=== PATIENT | female | born 1995 | race Caucasian/White ===

== ENCOUNTER 2022-06-18 09:37 | Outpatient (CLI) | payer BC, SELFPAY ==
[2022-06-18] VITALS (9 sets, daily range): BP systolic 97–111; BP diastolic 52–59; PULSE 86–97; RESP 17; BMI 35.6
--- NOTE | 2022-06-18 10:30 | US_ITS ---
WS: [id number] ULTRASOUND OB FOCUSED HISTORY: vaginal bleeding COMPARISON: 04/20/2022 Single intrauterine gestation is present in vertex presentation. The cervix appears closed measuring 4.0 cm. heart rate at 144 BPM. The placenta is posterior, fundal to anterior. No abruption or previa is identified. Grade 1 placenta . Normal amount of amniotic fluid. The amniotic fluid is clear. US/US OB limited [id number] IMPRESSION: 1. Placenta appears appropriate. No evidence for abruption or previa. 2. Cervix is closed. 3. Normal cardiac activity. 4. Clear amniotic fluid.
== END 2022-06-18 12:10 | disposition home or self-care (01) ==
LOC: OPOB 09:41 → OBGYN 09:57
PROVIDERS: PCP Nurse Practitioner Family; Visit Provider Family Medicine
DX: O46.90 Antepartum hemorrhage, unspecified, unspecified trimester (principal); Z3A.00 Weeks of gestation of pregnancy not specified
CPT/HCPCS: 59025; 76815; 99211

== ENCOUNTER 2022-07-29 12:15 | Inpatient (IN) | payer BC, SELFPAY ==
[2022-07-29] VITALS (47 sets, daily range): BP systolic 86–195; BP diastolic 51–79; PULSE 68–113; RESP 15–17; TEMP 36.1–36.5; O2SAT 89–100; BMI 34.7
[2022-07-29 12:50] LABS: Basophils % 0.2 %; Eosinophils # 0.1 10^3/uL (0.0-0.8); Eosinophils % 0.5 %; Hematocrit 40.4 % (37.0-47.0); Hemoglobin 13.2 g/dL (11.5-15.3); Lymphocytes # 2.3 10^3/uL (0.8-4.8); Lymphocytes % 17.4 %; Mean Corpuscular HGB Conc 32.7 g/dL (30.0-36.0); Mean Corpuscular Hemoglobin 28.1 pg (28.0-34.0); Mean Platelet Volume 9.6 fL (7.4-10.4); Monocytes # 0.8 10^3/uL (0.2-0.9); Neutrophils # 9.86 10^3/uL (1.8-7.7); Neutrophils % 75.4 %; Nucleated Red Blood Cells % 0 %; Platelet Count 370 10^3/cmm (130-400); Red Cell Distribution Width 14.5 % (12.1-15.1); White Blood Count 13.1 10^3/uL (4.0-10.0)
[2022-07-29] MEDS: ampicillin 2,000 MG in sodium chloride 0.9% (plus) 50 ML 100 MG IV (13:00)
[2022-07-29] MEDS: dextrose 5%-lactated ringers 1,000 ML 125 ML IV (13:01)
[2022-07-29] MEDS: oxytocin 30 UNIT/500 ML BAG IV (13:02)
[2022-07-29] MEDS: lactated ringers 1,000 ML 999 ML IV (13:57)
[2022-07-29] MEDS: fentaNYL 50 mcg/mL INJ 2mL IVP (14:21)
--- NOTE | 2022-07-29 14:59 | ANES.PREANE2 ---
Pre-Anesthetic Assessment Height/Weight: Height 1.57 m Weight 86.183 kg Temp Pulse Resp BP Pulse Ox O2 Del Method 97.0 F L 96 17 107/70 96 07/29/22 12:23 07/29/22 14:54 07/29/22 14:21 07/29/22 14:54 07/29/22 14:54 07/29/22 12:22 Familial anesthetic complications: none Was Beta Kari taken within 24 hours: N/A Was Clonidine taken within 24 hours: N/A Social No alcohol and No tobacco Exam alert, oriented x 3, clear to auscultation bilaterally and regular rate & rhythm Airway Submandibular: within normal limits Cervical ROM: within normal limits Mallampati: Class II Dentition: full History/ROS No significant history except as noted Anesthetic Plan ASA status: 2 Anesthesia: Regional (specify below) (Labor epidural) Medications/Allergies Home Medications Medication Instructions Recorded Confirmed Last Taken Type vits 75-iron 28 mg-folic 1 pkg PO DAILY 06/18/22 07/29/22 07/28/22 20:00 History acid 800 mcg-omega-3 oral combo pack Allergies Allergy/AdvReac Type Severity Reaction Status Date / Time No Known Allergies Allergy Verified 06/18/22 10:33 Current Medications Generic Name Dose Route Start Last Admin Trade Name Ahmetq PRN Reason Stop Dose Admin Fentanyl 25 - 100 mcg 07/29/22 12:19 07/29/22 14:21 Fentanyl 50 Mcg/Ml Inj 2ml IVP 25 mcg Q1H PRN Administration SEVERE PAIN Dextrose/Lactated Ringer's 1,000 mls @ 125 mls/hr 07/29/22 12:30 07/29/22 13:57 Dextrose 5%-Lactated Ringers IV 0 mls/hr .Q8H GUIDO Infusion Oxytocin 30 unit in 500 mls @ 2 mls/hr 07/29/22 12:30 07/29/22 14:13 Pitocin IV 5 milliunit/min .Q24H GUIDO 5 mls/hr Titration Protocol 2 MILLIUNIT/MIN Lactated Ringer's 1,000 mls @ 999 mls/hr 07/29/22 13:51 07/29/22 13:57 Lactated Ringers IV 999 mls/hr .Q1H1M PRN Administration See label comments PFSH Anesthesia Female Reproductive History : 4 Data Anesthesia 07/29/22 12:30 Short CBC 07/29/22 Range/Units 12:30 WBC 13.1 H (4.0-10.0) 10^3/uL Hgb 13.2 (11.5-15.3) g/dL Hct 40.4 (37.0-47.0) % MCV 86.0 (81-99) fl Plt Count 370 (130-400) 10^3/cmm Neut % (Auto) 75.4 % Neut # (Auto) 9.86 H (1.8-7.7) 10^3/uL Cardiac Studies: No Data to Display Anesthesia Procedures Epidural Time Out Performed: Yes Consents Signed: Procedure Consent Consent: requested by attending/covering physician, from patient, risks and benefits reviewed and patient agrees to proceed Lumbar Level: L3-L4 Epidural position: sitting Epidural procedure: sterile prep of area, 1% lidocaine to numb the area, 18 g needle, neg for paresthesia, test dose given, placed PCEA, no systemic response, sterile dressing applied and 0.2% Ropiavacaine @ mls/hr (13) Additional Comments: TOMY at 5cm, cath at 10cm, 5mls of 2% lido bolused
--- NOTE | 2022-07-29 15:36 | PM.OPHPUD ---
Labor & Delivery H&P Update Date of Procedure: July 29, 2022 Date H&P Performed: 07/29/22 Admission Diagnosis: at 37w5d Active labor
--- NOTE | 2022-07-29 15:37 | PM.DELIVERY ---
Delivery Note: Date of delivery: July 29, 2022 Procedure: Normal spontaneous vaginal delivery Estimated blood loss (mL): 175 Delivery: This is a 26-year-old G3, P2 at 37 weeks 5 days gestation who presented to clinic complaining of cramping and pressure. On sterile vaginal examination her cervix was 7 cm dilated, 75% effaced and -1 station. She was sent over to labor and delivery for expectant management. Her GBS test was still pending as it was just done 3 days prior. She was given a dose of ampicillin due to GBS unknown and copious yellow discharge. She received an epidural for pain managment. Her labor was augmented using Pitocin. She had spontaneous rupture of membranes with clear fluid. She only had to push 1 time and had a normal spontaneous vaginal delivery of a viable male infant weight 3465 g, 7 pounds 10 ounces, Apgars 9 and 9 over an intact perineum. There was a loose nuchal cord X1 that was reduced upon delivery. the infant was suctioned at delivery and placed on the mother's chest. The cord was clamped and the father cut the cord. Cord blood was then obtained. The placenta was delivered grossly intact and normal to inspection. There were no lacerations. Mother and were doing well after delivery. Estimated blood loss 175 mL. Coding Level of Care Code Acute Professor Of Physical Education for Yeni Olivier
[2022-07-29] MEDS: lanolin oint 7 gm 1 APPLIC TOPICAL (17:02)
[2022-07-29] MEDS: benzocaine-menthol 78 gm Canister 1 SPRAY TOPICAL (17:03)
[2022-07-29] MEDS: docusate sodium 100 mg Capsule PO (17:03)
[2022-07-29] MEDS: acetaminophen 325 mg Tablet 650 MG PO (17:03)
[2022-07-29] MEDS: ibuprofen 800 mg tablet PO (20:27)
[2022-07-30] VITALS (9 sets, daily range): BP systolic 98–122; BP diastolic 56–77; PULSE 60–99; RESP 15–17; TEMP 36.6–36.7; O2SAT 96–99
[2022-07-30] MEDS: acetaminophen 325 mg Tablet 650 MG PO ×2 (00:07→04:59)
--- NOTE | 2022-07-30 00:17 | PC.NURSE ---
2145 Call placed to JAMAL Delacruz 2145 due to patient complaint of head unrelieved by tylenol and ibuprofen. Patient states headache gets better when laying completely flat. Patient given cafinated beverage and instructed to attempt laying flat for rest. JAMAL Delacruz states she is going to consult Dr. Javier and call back. 2155 JAMAL Delacruz states patient needs to try to rest laying flat and given tylenol as needed throughout the night, if pain increases Dr. Canas ordered Aminophylline 150mg to be given IV piggyback and Dr. Javier will be in to see the patient in the morning to assess.
[2022-07-30 04:54] LABS: Hematocrit 39.8 % (37.0-47.0); Hemoglobin 12.9 g/dL (11.5-15.3); Mean Corpuscular HGB Conc 32.4 g/dL (30.0-36.0); Mean Corpuscular Volume 86.5 fl (81-99); Mean Platelet Volume 9.3 fL (7.4-10.4); Platelet Count 304 10^3/cmm (130-400); Red Cell Distribution Width 14.6 % (12.1-15.1); White Blood Count 12.7 10^3/uL (4.0-10.0)
--- NOTE | 2022-07-30 08:46 | ANE.PACU2 ---
Inpatient post-anesthesia follow up: Airway intact: Yes Vital signs: Temperature 97.9 F Pulse Rate 63 Respiratory Rate 16 Blood Pressure 99/63 Pulse Oximetry 96 Oxygen Delivery Me thod Room Air Oxygen Flow Rate Fraction of Inspir ed Oxygen Hydration adequate: Yes Nausea and vomiting: No Pain level: 1 Mental status: Baseline Additional Comments: assessed patient's headache. Patient states standing up makes headache worse, sitting in a semi-reclined position makes headache better, but laying completely flat worsens headache. When I lay completely flat I can feel my heart throbbing in my head. Given that patient did not have evident wet tap during procedure and pattern of worsening severity with supine positioning, headache does not appear to be d/t PDPH. Recommend non-opioid analgesics, adequate hydration, rest, and heat application.
[2022-07-30] MEDS: prenatal vitamin Capsule 1 CAP PO (09:02)
[2022-07-30] MEDS: ibuprofen 800 mg tablet PO ×2 (09:02→15:47)
[2022-07-30] MEDS: docusate sodium 100 mg Capsule PO (09:02)
[2022-07-30] MEDS: sodium chloride 0.9% 1,000 ML 999 ML IV (10:32)
[2022-07-30] MEDS: HYDROcodone-acetaminophen 5-325 mg Tablet 2 TAB PO (10:32)
--- NOTE | 2022-07-30 11:44 | P.PN_ITS ---
Subjective Subjective: The patient has had a severe headache since awakening this morning. She has been given ibuprofen, [place], caffeine, a heating pad, ice packs. Her headache is not entirely relieved with laying flat but it is significantly better. When she sits up or tries to stand and walk. She gets a very severe headache that is bad enough to make her cry. She was evaluated by anesthesia this morning and was not felt to have a spinal headache at that time. Vitals/I&O/Wt Last Vital Signs Temp 98.0 F 07/30/22 09:04 Pulse 76 07/30/22 09:04 Resp 16 07/30/22 09:04 BP 109/70 07/30/22 09:04 Pulse Ox 96 07/30/22 00:16 O2 Del Method 07/30/22 00:16 07/29/22 07/30/22 07/30/22 22:59 06:59 14:59 Intake Total 1518.9 / 1692.667 Output Total 800 / 800 Balance 718.9 / 892.667 Weight last 48 hrs Weight 86.183 kg Physical Exam 2 Narrative: Laying flat in bed with a washcloth over her forehead, mild distress with grimace, does not move head or neck spontaneously, just her arms. Lungs are clear to auscultation bilaterally, heart regular rate and rhythm, abdomen is soft and nontender, fundus is firm and U- 3, extremities have no calf tenderness, there is some nonpitting edema. Data 07/30/22 04:50 A&P Assessment and plan (1) Sudden onset of severe headache: Though the patient's headache is not completely relieved with laying flat she does say it is significantly better. It is significantly worse to the point of tears when she stands up. Having known this patient through she is not known to be a complainer. I believe she is in a decent amount of pain despite the medications and soothing actions we have taken. I am going to ask anesthesia to come and reevaluate her as I believe this is likely a spinal headache and she will need a blood patch. (2) Normal spontaneous vaginal delivery: Routine care Attestations Medical Necessity Statement*: Routine care Coding Level of Care Code Acute Lightning Protection Installer for Chg Soy Diagnoses Sudden onset of severe headache R51.9 Normal spontaneous vaginal delivery O80
--- NOTE | 2022-07-30 12:25 | ANES.PROC ---
Anesthesia Procedures Procedure/Date: 07/30/22 Procedure Narrative: Blood Patch Epidural: Time Out Performed: Yes Consents Signed: Procedure Consent Consent: requested by attending/covering physician, from patient, risks and benefits reviewed and patient agrees to proceed Lumbar Level: L3-L4 Epidural position: sitting Epidural procedure: sterile prep of area and 1% lidocaine to numb the area Additional Comments: 20 cc sterile blood administered via epidural tuohy Other Information: Asked to re-evaluate patient, now stating her headache does improve with recumbency. Epidural blood patch performed at L3-4, with 20 cc of sterile blood and patient experienced immediate resolution of headache
--- NOTE | 2022-07-30 12:58 | PC.NURSE ---
Pt having significant headache. Pt received ibuprofen, tylenol, norco, normal saline IV fluid bolus, heat and ice packs; with no relief. Pain is less with laying flat, but sitting or standing causes severe pain and distress. Pt was assessed by anesthesia around 8am and by Dr Turner at 11am who requested another anesthesia consult. Dr Molina in to see pt and decision to do a blood patch. Pt was sat up and given blood patch around 1220. After receiving blood patch pt was laid flat and asked to stay supine for 1-2 hours, and pt verbalized significant pain relief.
--- NOTE | 2022-08-12 16:09 | P.DS_ITS ---
Discharge Providers Date of Admission: 07/29/22 12:15 Date of Discharge: August 12, 2022 Attending Provider at Admission: Nikki Turner MD Attending Provider at Discharge: Nikki Turner MD Primary Care Provider: GARCÍA Hess Diagnoses at Discharge Discharge Diagnosis (1) Sudden onset of severe headache: Status: Acute (2) Normal spontaneous vaginal delivery: Status: Acute Reason for Visit Reason for Visit: induction Hospital Course Hospital Course This is a 26-year-old G3 now P3 who had a normal spontaneous vaginal delivery of a viable male . The morning after delivery mother developed a severe spinal headache. She received a blood patch with good result and by the evening time she was requesting discharge home. Her bleeding was average and she had no pain. Physical Exam Narrative: Alert and oriented, laying in bed, heart regular rate and rhythm, lungs clear to auscultation bilaterally, abdomen soft and nontender, fundus firm and U- 3. Discharge Data Studies Completed and Pending Laboratory Results WBC 12.7 10^3/uL (4.0-10.0) H 07/30/22 04:50 RBC 4.60 10^6/uL (4.1-5.3) 07/30/22 04:50 Hgb 12.9 g/dL (11.5-15.3) 07/30/22 04:50 Hct 39.8 % (37.0-47.0) 07/30/22 04:50 MCV 86.5 fl (81-99) 07/30/22 04:50 MCH 28.0 pg (28.0-34.0) 07/30/22 04:50 MCHC 32.4 g/dL (30.0-36.0) 07/30/22 04:50 RDW 14.6 % (12.1-15.1) 07/30/22 04:50 Plt Count 304 10^3/cmm (130-400) 07/30/22 04:50 MPV 9.3 fL (7.4-10.4) 07/30/22 04:50 Neut % (Auto) 75.4 % 07/29/22 12:30 Lymph % (Auto) 17.4 % 07/29/22 12:30 [place] % (Auto) 6.0 % 07/29/22 12:30 Eos % (Auto) 0.5 % 07/29/22 12:30 Baso % (Auto) 0.2 % 07/29/22 12:30 Neut # (Auto) 9.86 10^3/uL (1.8-7.7) H 07/29/22 12:30 Lymph # (Auto) 2.3 10^3/uL (0.8-4.8) 07/29/22 12:30 [place] # (Auto) 0.8 10^3/uL (0.2-0.9) 07/29/22 12:30 Eos # (Auto) 0.1 10^3/uL (0.0-0.8) 07/29/22 12:30 Baso # (Auto) 0.0 10^3/uL (0.0-0.1) 07/29/22 12:30 Nucleated RBC % (auto) 0 % 07/29/22 12:30 Nucleated RBCs # 0.0 /100WBC 07/29/22 12:30 Vitals Last Vital Signs Temp 97.8 F 07/30/22 18:15 Pulse 62 07/30/22 18:15 Resp 16 07/30/22 18:15 BP 98/61 07/30/22 18:15 Pulse Ox 99 07/30/22 18:05 O2 Del Method 07/30/22 18:05 Discharge Plan Discharge Patient Disposition: Home Prescriptions: Continued [id number] fum-folic ac-om3 28 mg iron- 800 mcg Combo Pack 1 pkg PO DAILY Discharge Orders: Discharge Order (Routine); Ordered 07/30/22 Ordered By: Nikki Turner Referrals: Nikki Turner MD [Physician] - 08/31/22 1:15 pm (* Your 4 week appointment is with Dr. Turner on Tuesday08/31/2022 at 1:15pm) Discharge Diet: Usual diet Discharge Activity: Limit activity as instructed Patient Instructions: Depression (DC), Bleeding (DC), Preeclampsia and Eclampsia After Delivery (GEN), OB Discharge Report, OB Food/Drug Interaction Guide, Opioid Safety, OB Home Care, OB Proud Parent Packet, OB Vaginal Deliveries Discharge Attestations Time Spent in Discharge Care*: less than 30 min Quality Metrics Clinical Quality Measures [ No reported AMI, CVA or VTE this stay] Coding Level of Care Code Acute Chg FW DC note Diagnoses Sudden onset of severe headache R51.9 Normal spontaneous vaginal delivery O80
== END 2022-07-30 18:15 | disposition home or self-care (01) | DRG 807 ==
LOC: OPOB 12:15 → OBGYN 12:17
PROVIDERS: Admitting Provider Family Medicine; PCP Nurse Practitioner Family; Visit Provider Family Medicine
DX: O69.2XX0 Labor and delivery complicated by other cord entanglement, with compression, not applicable or unspecified (principal); Z37.0 Single live birth; Z3A.37 37 weeks gestation of pregnancy; O89.4 Spinal and epidural anesthesia-induced headache during the puerperium
CPT/HCPCS: 36415; 59025; 59409; 85025; 85027; 96374; 98960; 99211; J0290; J2590; J2795; J3010; J7030; J7120; J7121